=== PATIENT | female | born 1985 | race Caucasian/White ===

== ENCOUNTER 2021-11-30 05:35 | Outpatient (RCR) | payer BC | END 2021-12-30 | disposition home or self-care (01) | LOC: PREOP 05:35 → EDSTATUS 08:30 | PROVIDERS: ATTEND Specialist | DX: Z01.818 Encounter for other preprocedural examination (principal) ==

== ENCOUNTER 2022-01-25 10:00 | Outpatient (CLI) | payer BC ==
[~2022-01-25] VITALS: Ht 170.2 cm; Wt 88.6 kg
[2022-01-28] MEDS ORDERED: MULT-974 PO (09:49)
[2022-01-28] MEDS ORDERED: HYOS-20 PO (09:49)
[2022-01-28] MEDS ORDERED: BIRTH CONTROL (09:49)
[2022-01-28] MEDS ORDERED: LACT1CAP74 PO (09:49)
[2022-01-28] MEDS ORDERED: PANT40TA52 PO (09:49)
[2022-01-28] MEDS ORDERED: DICY10CA12 PO (09:51)
== END 2022-01-25 14:19 ==
LOC: PREOP 10:00
PROVIDERS: ATTEND Specialist
DX: Z01.818 Encounter for other preprocedural examination (principal); E04.2 Nontoxic multinodular goiter

== ENCOUNTER 2022-02-01 10:31 | Day surgery (SDC) | payer BC ==
[2022-02-01] VITALS (10 sets, daily range): BP systolic 103–128; BP diastolic 59–78
[~2022-02-01] VITALS: Ht 170 cm; Wt 88.6 kg
[~2022-02-01 10:31] MED LIST: BIRTH CONTROL; DICY10CA12 PO; HYOS-20 PO; LACT1CAP74 PO; MULT-974 PO; PANT40TA52 PO
[2022-02-01] MEDS ORDERED: ceFAZolin INJECTION 2,000 MG in NS (IVPB) 50 ML IV SCH (11:15)
[2022-02-01] MEDS ORDERED: PHENYLEPHRINE 0.25% NASAL SPR (NEO-SYNEPHRINE) 15 ML NS PRN (11:15)
[2022-02-01] MEDS ORDERED: PHENYLEPHRINE 0.25% NASAL SPR (NEO-SYNEPHRINE) 15 ML NS ONE (11:26)
[2022-02-01] MEDS: LACTATED RINGERS 1,000 ML IV PRN ×2 (11:31→20:11)
[2022-02-01] MEDS ORDERED: EPINEPHrine INJECTION 1 MG/ML AMP IJ ONE (12:15)
[2022-02-01] MEDS ORDERED: proPOfol 200 MG/20 ML (DIPRIVAN) VIAL IV ONE (12:25)
[2022-02-01] MEDS ORDERED: SEVOFLURANE (ULTANE) 15 ML INHAL SOLN ONE ×2 (12:25→14:57)
[2022-02-01] MEDS ORDERED: LIDOCAINE PF 2% 5 ML (XYLOCAINE) VIAL ONE (12:25)
[2022-02-01] MEDS ORDERED: ROCURONIUM 10 MG/ML 5 ML SYRINGE IV ONE (12:25)
[2022-02-01] MEDS ORDERED: MIDAZOLAM 2 MG/2 ML (VERSED) VIAL ONE (12:25)
[2022-02-01] MEDS ORDERED: ONDANSETRON 4 MG/2 ML (SDV) Z0FRAN ONE (12:25)
[2022-02-01] MEDS ORDERED: fentaNYL INJ 100 MCG/2 ML AMP ONE ×2 (12:25→14:09)
--- NOTE | 2022-02-01 12:28 | Progress Note-Pre Operative ---
Pre-Operative Progress Note Date of Available H&P: Feb 01, 2022 Date H&P Reviewed: Feb 01, 2022 Time H&P Reviewed: 11:30 Pre-Operative Diagnosis: mandibular hypoplasia HAILEY CAPELLAN DDS Feb 01, 2022 12:28
[2022-02-01] MEDS ORDERED: LIDOCAINE 1% INJ 10 ML VIAL ONE (13:13)
[2022-02-01] MEDS ORDERED: ceFAZolin INJECTION 1,000 MG in NS (IVPB) 50 ML IV SCH (14:00)
[2022-02-01] MEDS ORDERED: GLYCOPYRROLATE 0.2 MG/ML (ROBINUL) 2 ML VIAL ONE (14:57)
[2022-02-01] MEDS ORDERED: NEOSTIGMINE 3 MG/3 ML VIAL ONE (14:57)
[2022-02-01] MEDS ORDERED: ROPIVACAINE 5MG/ML 30ML VIAL ONE (15:05)
[2022-02-01] MEDS ORDERED: ROPIVACAINE 5MG/ML 30ML VIAL INJ ONE (15:28)
[2022-02-01] MEDS ORDERED: LIDOCAINE JELLY 2% 6 ML SYRINGE ONE (15:33)
[2022-02-01] MEDS ORDERED: ONDANSETRON 4 MG/2 ML (SDV) Z0FRAN IVP PRN (16:00)
[2022-02-01] MEDS ORDERED: HYDROmorphone 2 MG/ML VIAL (DILAUDID) IV ONE (16:00)
[2022-02-01] MEDS ORDERED: morphine INJ 10 MG/ML 1ML (SYR OR VIAL) IVP ONE (16:00)
--- NOTE | 2022-02-01 16:00 | Anesthesia-General Post-Op ---
General Patient Condition Mental Status/LOC: Same as Preop Cardiovascular: Satisfactory Nausea/Vomiting: Absent Respiratory: Satisfactory Pain: Controlled Complications: Absent Post Op Complications Complications None Follow Up Care/Instructions Patient Instructions None needed. Anesthesia/Patient Condition Patient Condition Patient is doing well, no complaints, stable vital signs, no apparent adverse anesthesia problems. No complications reported per nursing. SAMANTA BERNARD CRNA Feb 01, 2022 16:00
[2022-02-01] MEDS ORDERED: KETOROLAC 30 MG/ML VIAL ONE (16:01)
[2022-02-01] MEDS: HYDROcodone/APAP 7.5MG-325 MG/15 ML (LORTAB) UDC PO PRN ×2 (17:49→23:53)
[2022-02-01] MEDS: ceFAZolin INJECTION 1,000 MG in NS (IVPB) 50 ML IV SCH (20:11)
[2022-02-01] MEDS: LACTATED RINGERS 1,000 ML IV SCH (20:29)
[2022-02-01] MEDS ORDERED: HYDROmorphone 2 MG/ML VIAL (DILAUDID) ONE (21:24)
[2022-02-01] MEDS: HYDROmorphone 2 MG/ML VIAL (DILAUDID) IVP PRN (21:33)
[2022-02-02 00:43] VITALS: BP 107/65
[2022-02-02] MEDS: ceFAZolin INJECTION 1,000 MG in NS (IVPB) 50 ML IV SCH (03:37)
[2022-02-02] MEDS: HYDROmorphone 2 MG/ML VIAL (DILAUDID) IVP PRN ×2 (03:37→07:53)
[2022-02-02 04:26] VITALS: BP 104/72
[2022-02-02] MEDS: LACTATED RINGERS 1,000 ML IV SCH (07:55)
[2022-02-02 07:56] VITALS: BP 113/58
[2022-02-02] MEDS: HYDROcodone/APAP 7.5MG-325 MG/15 ML (LORTAB) UDC PO PRN (10:34)
[2022-02-02] MEDS ORDERED: DOCU100T7 PO (11:11)
[2022-02-02] MEDS ORDERED: [UNRECOGNIZED DRUG - CODE] PO (11:11)
[2022-02-02] MEDS ORDERED: NORG1TAB16 PO (11:11)
[2022-02-02 11:32] VITALS: BP 110/55
[2022-02-02 12:30] VITALS: BP 110/55
--- NOTE | 2022-03-04 18:10 | OPERATIVE REPORT ---
DATE OF SERVICE: 03/04/2022 SERVICE: tax consultant. PREOPERATIVE DIAGNOSIS: Mandibular hypoplasia. POSTOPERATIVE DIAGNOSIS: Mandibular hypoplasia. PROCEDURES: Bilateral sagittal split ramus osteotomy. SURGEON: Dr. Hailey Capellan. RADIOGRAPHIC TECHNOLOGIST: Laura ____. ANESTHESIA: General endotracheal. There were no complications. Blood loss was 100 mL FLUIDS: 1800 mL of crystalloid. Instrument, needle and sponge count were correct x2. HISTORY OF PRESENT ILLNESS: The patient is a 36-year-old otherwise healthy white female who presents to my clinic upon referral from ____, an airline lounge receptionist in [place] approximately a year prior to surgery. She was presently in orthodontic appliances. By her airline lounge receptionist, it was determined she would best be served by having a bilateral sagittal split ramus osteotomy, which we would advance ____ jaw approximately 8-10 mm depending on the final set up of her orthodontic treatment. Throughout the course of the year, I was able to follow the patient and evaluate her progress. As we neared surgery, I explained to her the risks versus benefits for surgery as well as the risks versus benefits for denying surgery at this time. In particular, we discussed at length the potential for either hypo or anesthesia of the inferior alveolar nerve either unilaterally or bilaterally. We allowed her appropriate time on numerous occasions to ask questions, they were answered and after receiving all the information for myself and ____, she elected for surgery and it was scheduled at the earliest opportune time. DESCRIPTION OF PROCEDURE: The patient was taken to the operating room and placed in the operatory table. The appropriate monitors were placed and anesthesia was induced via nasotracheal intubation without difficulty. After this, surgeons left the room, scrubbed, returned, donned sterile gowns and gloves and prepped and draped the patient in the usual standard sterile fashion. On returning at that point, we then placed bilateral mandibular blocks as well as infiltrated the mandibular vestibule bilaterally. At this point, then a throat pack had been placed. We then placed a bite block in the contralateral side and then made a full-thickness mucoperiosteal flap incision along the external oblique ridge and the ascending ramus approximately custodial up the ascending ramus and extended down to the end of the external oblique ridge. Once this was completed, we used a 15 blade to excise sharply through the periosteum and then a full-thickness mucoperiosteal flap was elevated, starting on the superior and medial aspect of the mandible and then extending inferiorly, medially until we were able to identify where the inferior alveolar nerve entered the mandible. The subperiosteal dissection was continued along the external oblique ridge at this point, laterally exposing the lateral aspect of the mandible. After this, we used a handpiece with a crosscut fissure bur to make our medial cut posterior to medially and then posterior to the lingula approximately 5 mm above the lingula protecting the inferior alveolar nerve and then extending this along the external oblique ridge until it kind of feathers out and then made our vertical osteotomy approximately between the first and second molars and this was extended inferiorly and then made our cut at the inferior border. After this was completed, we used osteotomes to make sure our osteotomies were complete to the cortex and then the mandible was or split without difficulty. The neurovascular bundle was in the distal segment. Then, we made sure we had adequate movement and separation of both the distal and proximal segments. We performed the exact same procedure on the right side. Again, having no difficulties and having a split again where the neurovascular bundle was in the distal segment. After make sure we had correct and free motion, we distracted the mandible. At this point, we then placed an intraoperative splint, which had been prefabricated wired into the maxilla and then advanced mandible and wired it into place and the splint with wire loops. After this, we then did a percutaneous access and then while making sure the condyles were seated in their most distal posterior aspect of the fossa, they were held in place and then we used a drill and then placed 3 screws posterior to the second molar in the ascending ramus at the junction of the angle without difficulty. Three screws were placed bilaterally ____ ____. At this point, we then checked to make sure that we had adequate stabilization of the segments. We removed her intermaxillary fixation, make sure that we could reproduce her occlusion and that she passively fit into the splint. After this, we copiously irrigated with normal saline and then closure was completed with 4-0 Vicryl in interrupted and running fashion. This completed our procedure. We once again checked to make sure our occlusion was passive and reproducible. Then, we removed the throat pack. She was allowed to emerge from her general anesthetic. She was then transported to the recovery room and assessed to have stable vital signs, breathing spontaneously with a pulse ox of 99%. Job ID: [id number] DocumentID: [id number] Dictated Date: 03/04/2022 09:10:54 Radio Message Router Date: 03/04/2022 17:32:00 Dictated By: HAILEY CAPELLAN DDS
== END 2022-02-02 12:30 | disposition home or self-care (01) ==
LOC: SDC 10:31 → 4TH 16:36 → SDC 02-02 12:30
PROVIDERS: ATTEND Specialist
DX: M26.03 Mandibular hyperplasia (principal)
CPT/HCPCS: 21196; 84703; 87081; C1713 ×2